=== PATIENT | male | born 1985 | race Caucasian/White ===

== ENCOUNTER 2017-10-02 19:52 | Inpatient (IN) | payer OTHER ==
[~2017-10-02] VITALS: Ht 180.3 cm; Wt 109.4 kg
[2017-10-02 20:09] LABS: BASOPHIL COUNT 0.1 K/uL (0-0.1); EOSINOPHIL (%) 2.5 % (0-5); EOSINOPHIL COUNT 0.4 K/uL (0-0.3); HEMATOCRIT 41.5 % (38.0-50.0); IMMATURE GRANULOCYTE (%) 0.9 % (0.0-0.7); IMMATURE GRANULOCYTE COUNT 0.2 K/uL; INSTRUMENT ABS NEUTROPHIL CT 11.4 K/uL; LYMPHOCYTE COUNT 2.8 K/uL (1.0-2.8); MCH 31.6 PG (29.0-34.0); MCHC 35.2 G/DL (30.0-36.0); MCV 89.8 FL (86-99); MEAN PLAT.VOLUME 10.1 uM^3 (9.0-12.4); MONOCYTE (%) 6.1 % (3-12); NEUTROPHIL COUNT 11.4 K/uL (1.8-6.4); PLATELET COUNT 334 K/uL (156-360); RBC DIS.WIDTH-CV 12.1 % (11.8-14.6); RBC DIS.WIDTH-SD 39.6 % (39-53); RED BLOOD COUNT 4.62 M/uL (4.00-5.50); WHITE BLOOD COUNT 15.8 K/uL (4.1-10.2)
[2017-10-02 20:18] LABS: AMYLASE 66 IU/L (1-118); CHLORIDE 108 mEq/L (99-109); SODIUM 139 mEq/L (136-147)
[2017-10-02 20:20] LABS: GLUCOSE 107 mg/dL (70-99)
[2017-10-02 20:21] LABS: ANION GAP 10 MEQ/L (2-14)
[2017-10-02 20:23] LABS: SERUM ETHYL ALCOHOL < 10 mg/dL
[2017-10-02 20:25] LABS: UREA NITROGEN (BUN) 12 mg/dL (9-23)
[2017-10-02 20:27] LABS: LIPASE 23 U/L (1.0-51.0)
[2017-10-02 20:45] LABS: GFR ESTIMATE (CALCULATED) > 59 mL/min/
[2017-10-02] MEDS ORDERED: MONTELUKAST SOD10 MG PO (21:07)
[2017-10-02] MEDS ORDERED: PROZAC40 MG PO (21:08)
[2017-10-02] MEDS ORDERED: KEPPRA1000 MG PO (21:11)
[2017-10-02] MEDS ORDERED: LAMICTAL200 MG PO (21:13)
[2017-10-02] MEDS ORDERED: SEROQUEL100 MG PO (21:15)
[2017-10-02] MEDS ORDERED: ADVAIR 500/501 DISK IH (21:17)
[2017-10-02] MEDS ORDERED: PROAIR HFA8.5 GM IH (21:17)
[2017-10-02] MEDS ORDERED: DUONEB 2.5-0.5 M3 ML AEROSOL (21:19)
[2017-10-02 23:40] VITALS: BP 153/89
[2017-10-02 23:40] LABS: ADD MIUA? NO; BILIRUBIN NEGATIVE; BLOOD NEGATIVE; COLOR YELLOW ((YELLOW)); GLUCOSE (STRIP) NEGATIVE; KETONES NEGATIVE; LEUKOCYTES NEGATIVE; NITRITE NEGATIVE; PROTEIN (STRIP) NEGATIVE; UCUL ADDED? NO; UROBILINOGEN 0.2 MG/DL (0.2-1.0)
[2017-10-02 23:49] LABS: ADD MEDTOX COMMENT Y; AMPHETAMINE NEGATIVE (500 ng/mL); BARBITURATES NEGATIVE (200 ng/mL); BENZODIAZEPINES NEGATIVE (150 ng/mL); COCAINE NEGATIVE (150 ng/mL); INTERNAL CONTROLS VALID? YES; METHADONE NEGATIVE (200 ng/mL); METHAMPHETAMINE NEGATIVE (500 ng/mL); OPIATES (MORPHINE) NEGATIVE (100 ng/mL); OXYCODONE NEGATIVE (100 ng/mL); PHENCYCLIDINE NEGATIVE (25 ng/mL); PROPOXYPHENE NEGATIVE (300 ng/mL); THC CANNABINOIDS PRESUMPTIVE POSITIVE (50 ng/mL); TRICYCLIC ANTIDEPRESSANTS NEGATIVE (300 ng/mL)
[2017-10-02 23:57] LABS: SPECIFIC GRAVITY 1.058 (1.000-1.030)
[2017-10-03] VITALS (11 sets, daily range): BP systolic 111–152; BP diastolic 57–94
[2017-10-03 01:23] LABS: METH RESISTANT S AUREUS PCR NEGATIVE (NEGATIVE)
[2017-10-03 01:26] LABS: PROBE CHECK PASS; SPECIMEN PROCESSING CONTROL PASS
[2017-10-03 05:35] LABS: HEMATOCRIT 38.5 % (38.0-50.0); MCH 30.8 PG (29.0-34.0); MCHC 33.8 G/DL (30.0-36.0); MCV 91.2 FL (86-99); MEAN PLAT.VOLUME 9.8 uM^3 (9.0-12.4); PLATELET COUNT 316 K/uL (156-360); RBC DIS.WIDTH-CV 12.2 % (11.8-14.6); RBC DIS.WIDTH-SD 40.5 % (39-53); RED BLOOD COUNT 4.22 M/uL (4.00-5.50); WHITE BLOOD COUNT 14.8 K/uL (4.1-10.2)
[2017-10-03 06:03] LABS: ALKALINE PHOSPHATASE 59 IU/L (3-129); ANION GAP 8 MEQ/L (2-14); CHLORIDE 107 MEQ/L (99-109); GFR ESTIMATE (CALCULATED) > 59 mL/min/; GLUCOSE 120 mg/dL (70-99); POTASSIUM 4.2 MEQ/L (3.7-5.4); SAMPLE HEMOLYSIS CHECK 0; SAMPLE ICTERIC CHECK 0; SAMPLE LIPEMIA CHECK 0; SODIUM 142 MEQ/L (136-147); TOTAL BILIRUBIN 0.6 MG/DL (0.0-1.0); UREA NITROGEN (BUN) 10 mg/dL (9-23)
[2017-10-04 03:53] VITALS: BP 115/55
[2017-10-04 07:58] VITALS: BP 138/79
[2017-10-04] MEDS ORDERED: Salonpas 4% Patch TD (10:38)
[2017-10-04] MEDS ORDERED: OXYCODONE HCL5 MG PO (10:38)
[2017-10-04] MEDS ORDERED: CHLORHEXIDINE473 ML MM (10:38)
[2017-10-04] MEDS ORDERED: CHLORZOXAZONE500 MG PO (10:38)
[2017-10-04] MEDS ORDERED: AMOXICILLIN500 MG PO (10:38)
[2017-10-04] MEDS ORDERED: SENNA LAX8.6 MG PO (10:38)
[2017-10-04 11:41] VITALS: BP 123/60
== END 2017-10-04 14:52 | disposition home or self-care (01) | DRG 83 ==
LOC: TRA 19:52 → ENRESERV 22:20 → 3EAST 22:20 → EDOF 22:20 → 4WEST 22:20 → ENRESERV 23:04 → 4WEST 23:34 → ENRESERV 10-03 13:58 → 3EAST 10-03 15:48
PROVIDERS: Emergency Medicine; Surgery
DX: S06.339A Contusion and laceration of cerebrum, unspecified, with loss of consciousness of unspecified duration, initial encounter (principal); S06.2X9A Diffuse traumatic brain injury with loss of consciousness of unspecified duration, initial encounter; S02.609A Fracture of mandible, unspecified, initial encounter for closed fracture; S22.41XA Multiple fractures of ribs, right side, initial encounter for closed fracture; S01.512A Laceration without foreign body of oral cavity, initial encounter; V47.5XXA Car driver injured in collision with fixed or stationary object in traffic accident, initial encounter; Y92.410 Unspecified street and highway as the place of occurrence of the external cause; R40.2410 Glasgow coma scale score 13-15, unspecified time; F32.9 Major depressive disorder, single episode, unspecified; F41.9 Anxiety disorder, unspecified; J45.909 Unspecified asthma, uncomplicated; K11.9 Disease of salivary gland, unspecified; E66.9 Obesity, unspecified; G40.909 Epilepsy, unspecified, not intractable, without status epilepticus; S06.9X9S Unspecified intracranial injury with loss of consciousness of unspecified duration, sequela; Z23 Encounter for immunization; Z87.828 Personal history of other (healed) physical injury and trauma; Z68.33 Body mass index [BMI] 33.0-33.9, adult
CPT/HCPCS: 70450; 70486; 71020; 71260; 72125; 72129; 72132; 74177; 80048; 80053; 81003; 82150; 83690; 84999; 85025; 85027; 86850; 86900; 86901; 87641; 90686; 93005; 94640; 94640 76; 94760; 94799; 99202; 99281; 99285; G0480; J2405; J3010; J3480